=== PATIENT | female | born 1955 | race Caucasian/White ===

== ENCOUNTER 2016-09-07 11:13 | Inpatient (IN) | payer MEDICAID ==
[~2016-09-07] VITALS: Ht 160 cm; Wt 92.3 kg
[2016-09-07 12:25] LABS: Basophils # (auto) 0.1 uL; Basophils % (auto) 0.5 % (0.0-2.0); DEFINITIVE VIEW TRANSMISSION; Eosinophils # (auto) 0.1 uL; Eosinophils % (auto) 0.7 % (0.0-7.0); Hematocrit 43.8 % (36.0-46.0); Hemoglobin 14.7 g/dL (12.2-16.2); Lymphocytes # (auto) 2.3 uL; Lymphocytes % (auto) 17.8 % (10.0-50.0); Mean Corpuscular Hemoglobin 29.1 pg (28.0-32.0); Mean Corpuscular Hgb Conc. 33.5 g/dL (32.0-36.0); Mean Corpuscular Volume 86.9 fL (80.0-100.0); Mean Platelet Volume 8.4 fL (7.4-10.4); Monocytes # (auto) 2.1 uL; Monocytes % (auto) 16.5 % (0.0-12.0); Neutrophils # (auto) 8.3 uL; Neutrophils % (auto) 64.5 % (37.0-80.0); Platelet Count (auto) 393 10^3/uL (140-450); White Blood Cell 12.9 10^3/uL (4.4-10.8)
[2016-09-07 12:54] LABS: Urine Bilirubin Negative (Negative); Urine Blood Negative /uL (Negative); Urine Color Brown (Yellow); Urine Glucose Normal (Normal); Urine Ketone Negative (Negative); Urine RBC 1 /hpf (0 - 4); Urine Urobilinogen Normal (Negative); Urine pH 5.5 (5.0-8.0)
[2016-09-07 12:58] LABS: Albumin 3.1 g/dL (3.4-5.0); Alkaline Phosphatase 117 U/L (45-117); Anion Gap 12 (5-15); Aspartate Aminotransferase 18 U/L (15-37); BUN/Creatinine Ratio 15.4; Bilirubin, Total 0.6 mg/dL (0.2-1.0); Blood Urea Nitrogen 14 mg/dL (7-18); Carbon Dioxide 24 mmol/L (21-32); Chloride 106 mmol/L (98-107); GFR African American 81 mL/min; GFR Non-African American 67 mL/min; Glucose 127 mg/dL (74-106); Potassium 3.5 mmol/L (3.5-5.1); Sodium 142 mmol/L (136-145); Total Protein 8.4 g/dL (6.4-8.2)
[2016-09-07 13:00] LABS: Urine Nitrite POSITIVE (Negative)
[2016-09-07] MEDS ORDERED: SODIUM CHLORIDE 0.9% 1,000 ML IVB ONE (15:20)
[2016-09-07] MEDS ORDERED: MORPHINE SULF INJ 2 MG/ML SYRINGE 1ML IV ONE (15:30)
[2016-09-07] MEDS ORDERED: ONDANSETRON HCL 4 MG/2 ML VIAL IV ONE (15:30)
[2016-09-07] MEDS ORDERED: HYDROcodone-ACET 5/325MG TAB PO PRN (17:00)
[2016-09-07] MEDS ORDERED: cefTRIAXone 1GM/50ML D5W 50 ML IV ONE (17:15)
[2016-09-07 18:06] VITALS: BP 152/84
[2016-09-07 20:00] VITALS: BP 115/79
[2016-09-07] MEDS: ONDANSETRON HCL 4 MG/2 ML VIAL IV PRN (20:32)
[2016-09-07] MEDS: HYDROmorphone HCL 2 MG/ML VL IV PRN (20:32)
[2016-09-07 21:49] LABS: INR 1.11 (0.9-1.15); Partial Thromboplastin Time 26.2 sec (22.64-33.71); Prothrombin Time 11.4 sec (9.37-12.3)
[2016-09-07 22:00] VITALS: BP 115/79
[2016-09-08] VITALS (7 sets, daily range): BP systolic 131–147; BP diastolic 70–88
[2016-09-08] MEDS: HYDROmorphone HCL 2 MG/ML VL IV PRN ×3 (03:41→21:59)
[2016-09-08] MEDS: ONDANSETRON HCL 4 MG/2 ML VIAL IV PRN ×4 (03:41→16:49)
[2016-09-08 06:07] LABS: Basophils # (auto) 0 uL; Basophils % (auto) 0.3 % (0.0-2.0); DEFINITIVE VIEW TRANSMISSION; Eosinophils # (auto) 0.1 uL; Eosinophils % (auto) 0.6 % (0.0-7.0); Hematocrit 39.7 % (36.0-46.0); Hemoglobin 13.1 g/dL (12.2-16.2); Lymphocytes # (auto) 2.2 uL; Lymphocytes % (auto) 15.3 % (10.0-50.0); Mean Corpuscular Volume 87.7 fL (80.0-100.0); Mean Platelet Volume 8.9 fL (7.4-10.4); Monocytes # (auto) 1.9 uL; Monocytes % (auto) 13.2 % (0.0-12.0); Neutrophils # (auto) 10.2 uL; Neutrophils % (auto) 70.6 % (37.0-80.0); Platelet Count (auto) 388 10^3/uL (140-450); Red Cell Distribution Width 14.4 % (11.6-16.0); White Blood Cell 14.4 10^3/uL (4.4-10.8)
[2016-09-08 06:19] LABS: INR 1.09 (0.9-1.15); Partial Thromboplastin Time 26.5 sec (22.64-33.71); Prothrombin Time 11.2 sec (9.37-12.3)
[2016-09-08] MEDS ORDERED: GOLYTELY 4L KIT PO ONE (06:45)
[2016-09-08] MEDS ORDERED: PNEUMOCOCCAL VACC POLYS 25 MCG/0.5 ML VIAL IM ONE (09:00)
[2016-09-08] MEDS ORDERED: INFLUENZA QUAD 2016-2017 0.5 ML SYRG IM ONE (09:00)
[2016-09-08] MEDS: cefTRIAXone 1GM/50ML D5W 50 ML IV SCH (09:13)
[2016-09-08] MEDS ORDERED: LORazepam 2MG/ML-1ML VIAL IV ONE (12:15)
[2016-09-08] MEDS ORDERED: GADOPENTETATE DIMEGLUMINE (10MMOL/20 ML) VIAL IV ONE (13:23)
[2016-09-08] MEDS: METOPROLOL SUCCINATE XL 50 MG TAB PO SCH (16:21)
[2016-09-08 18:03] LABS: Urine RBC None Seen /hpf (0 - 4)
[2016-09-08 18:12] LABS: Urine Bilirubin Negative (Negative); Urine Blood Negative /uL (Negative); Urine Color Yellow (Yellow); Urine Glucose Normal (Normal); Urine Ketone Negative (Negative); Urine Mucus FEW (None Seen); Urine Nitrite Negative (Negative); Urine Urobilinogen Normal (Negative)
[2016-09-09] MEDS: HYDROmorphone HCL 2 MG/ML VL IV PRN ×4 (02:15→20:55)
[2016-09-09] MEDS: ONDANSETRON HCL 4 MG/2 ML VIAL IV PRN ×2 (02:15→20:55)
[2016-09-09 05:00] VITALS: BP 124/76
[2016-09-09 08:00] VITALS: BP 119/76
[2016-09-09] MEDS: cefTRIAXone 1GM/50ML D5W 50 ML IV SCH (08:19)
[2016-09-09] MEDS: METOPROLOL SUCCINATE XL 50 MG TAB PO SCH (11:22)
[2016-09-09 12:58] VITALS: BP 113/69
[2016-09-09 17:00] VITALS: BP 126/73
[2016-09-09 20:00] VITALS: BP 115/66
[2016-09-09 21:50] VITALS: BP 115/66
[2016-09-10] MEDS: HYDROmorphone HCL 2 MG/ML VL IV PRN ×2 (03:29→09:55)
[2016-09-10 05:33] VITALS: BP 102/50
[2016-09-10 08:03] VITALS: BP 102/50
[2016-09-10] MEDS: cefTRIAXone 1GM/50ML D5W 50 ML IV SCH (08:40)
[2016-09-10 09:00] VITALS: BP 114/70
[2016-09-10] MEDS: METOPROLOL SUCCINATE XL 50 MG TAB PO SCH (09:55)
[2016-09-10] MEDS ORDERED: ceFAZolin 1GM/50ML D5W 50 ML IV ONE ×2 (11:05→13:00)
[2016-09-10] MEDS ORDERED: fentaNYL CITRATE 100 MCG/2 ML VL ONE (11:38)
[2016-09-10] MEDS ORDERED: fentaNYL CITRATE 5 ML ONE (11:38)
[2016-09-10] MEDS ORDERED: MIDAZOLAM HCL 1MG/1ML-2 ML VIAL ONE (11:38)
[2016-09-10] MEDS ORDERED: HYDROmorphone HCL 2 MG/ML VL ONE (11:38)
[2016-09-10] MEDS ORDERED: ETOMIDATE (2MG/ML) 20ML VIAL IV ONE (11:39)
[2016-09-10] MEDS ORDERED: DEXAMETHASONE SOD PHOS 10MG/1ML VIAL INJ ONE (11:39)
[2016-09-10] MEDS ORDERED: ACETAMINOPHEN IV 100 ML IV ONE (13:00)
[2016-09-10] MEDS ORDERED: NITROGLYCERIN 0.4 MG SL TAB SL PRN (13:00)
[2016-09-10] MEDS ORDERED: MORPHINE SULF INJ 2 MG/ML SYRINGE 1ML IV PRN ×2 (13:00→16:15)
[2016-09-10] MEDS ORDERED: ROCURONIUM 10MG/ML 10ML VIAL IV ONE (13:35)
[2016-09-10] MEDS ORDERED: LIDOCAINE W/ EPINEPHRINE 1 % INJ 30ML ONE (15:21)
[2016-09-10] MEDS ORDERED: LIDOCAINE HCL (LOCAL ANESTH.) 0.5 % 50ML MDV IJ ONE (15:21)
[2016-09-10] MEDS ORDERED: BUPIVACAINE 0.25% INJ 50ML VIAL ONE (15:21)
[2016-09-10] MEDS ORDERED: NEOSTIGMINE 1 MG/ML INJ (10mg/10ML VIAL) ONE (15:46)
[2016-09-10] MEDS ORDERED: GLYCOPYRROLATE 0.2 MG/ML 1ML VIAL ONE (15:46)
[2016-09-10] MEDS ORDERED: MIDAZOLAM HCL 1MG/1ML-2 ML VIAL IV PRN (16:15)
[2016-09-10] MEDS ORDERED: KETOROLAC TROMETH 30 MG/ML 1ML VIAL IV ONE (16:15)
[2016-09-10] MEDS ORDERED: hydrALAZINE HCL 20 MG/ML VL IV PRN (16:15)
[2016-09-10] MEDS ORDERED: HYDROmorphone HCL 2 MG/ML VL IV PRN (16:15)
[2016-09-10] MEDS ORDERED: ePHEDrine SULFATE 50 MG/ML AMP IV PRN (16:15)
[2016-09-10] MEDS ORDERED: ONDANSETRON HCL 4 MG/2 ML VIAL IV ONE (16:15)
[2016-09-10] MEDS ORDERED: LABETALOL HCL 5 MG/ML 4ML SYRINGE IV PRN (16:15)
[2016-09-10] MEDS: SODIUM CHLORIDE 0.9% 1,000 ML IV SCH (18:01)
[2016-09-10 18:33] LABS: DEFINITIVE VIEW TRANSMISSION; Hematocrit 35.8 % (36.0-46.0); Hemoglobin 11.9 g/dL (12.2-16.2); Mean Corpuscular Hemoglobin 28.9 pg (28.0-32.0); Mean Corpuscular Hgb Conc. 33.2 g/dL (32.0-36.0); Mean Corpuscular Volume 87.2 fL (80.0-100.0); Mean Platelet Volume 8.8 fL (7.4-10.4); Platelet Count (auto) 416 10^3/uL (140-450); Red Cell Distribution Width 15.1 % (11.6-16.0); SUSPECT VIEW TRANSMISSION
[2016-09-10 19:15] LABS: White Blood Cell 33.6 10^3/uL (4.4-10.8)
[2016-09-10 19:16] LABS: Metamyelocytes % 0; Myelocytes % 0; Promyelocytes % 0; Reactive Lymphocytes 0
[2016-09-10 20:00] VITALS: BP 105/56
[2016-09-10 20:48] LABS: Anisocytosis Slight; Platelet Estimate Adequate
[2016-09-10 21:30] LABS: Hematocrit 36.4 % (36.0-46.0); Hemoglobin 12.2 g/dL (12.2-16.2)
[2016-09-10 21:53] VITALS: BP 105/56
[2016-09-11] MEDS: SODIUM CHLORIDE 0.9% 1,000 ML IV SCH ×2 (03:16→13:59)
[2016-09-11 05:15] VITALS: BP 118/79
[2016-09-11 05:44] LABS: DEFINITIVE VIEW TRANSMISSION; Hematocrit 32.3 % (36.0-46.0); Hemoglobin 10.8 g/dL (12.2-16.2); Mean Corpuscular Hemoglobin 29.1 pg (28.0-32.0); Mean Corpuscular Hgb Conc. 33.4 g/dL (32.0-36.0); Mean Corpuscular Volume 87.2 fL (80.0-100.0); Mean Platelet Volume 8.3 fL (7.4-10.4); Platelet Count (auto) 368 10^3/uL (140-450); Red Cell Distribution Width 14.4 % (11.6-16.0); SUSPECT VIEW TRANSMISSION; White Blood Cell 25.3 10^3/uL (4.4-10.8)
[2016-09-11 05:50] LABS: Metamyelocytes % 0; Myelocytes % 0; Promyelocytes % 0; Reactive Lymphocytes 0
[2016-09-11 06:05] LABS: BUN/Creatinine Ratio 23.3; Calcium 7.4 mg/dL (8.5-10.1); Potassium 3.8 mmol/L (3.5-5.1)
[2016-09-11 06:50] LABS: Hypersegmented Neutrophils Present
[2016-09-11 06:51] LABS: Anisocytosis Slight; Platelet Estimate Adequate
[2016-09-11 08:00] VITALS: BP 141/72
[2016-09-11] MEDS: cefTRIAXone 1GM/50ML D5W 50 ML IV SCH (08:35)
[2016-09-11] MEDS: HYDROmorphone HCL 2 MG/ML VL IV PRN ×3 (08:36→18:41)
[2016-09-11] MEDS: METOPROLOL SUCCINATE XL 50 MG TAB PO SCH (08:37)
[2016-09-11 09:00] VITALS: BP 141/72
[2016-09-11] MEDS: metroNIDAZOLE 500MG/100ML 100 ML IV SCH ×2 (13:59→23:01)
[2016-09-11] MEDS: MORPHINE SULF INJ 2 MG/ML SYRINGE 1ML IV PRN (15:24)
[2016-09-11 16:50] VITALS: BP 120/68
[2016-09-11] MEDS ORDERED: LIDOCAINE 1% HCL (LOCAL ANESTH.) INJ 20ML MDV ID ONE (18:15)
[2016-09-11] MEDS: ONDANSETRON HCL 4 MG/2 ML VIAL IV PRN (18:44)
[2016-09-11 20:00] VITALS: BP 111/76
[2016-09-11 22:00] VITALS: BP 127/67
[2016-09-11] MEDS: SODIUM CHLOR 0.9% PF (SALINE LOCK) 10ML VIAL IV SCH (23:02)
[2016-09-12] VITALS (11 sets, daily range): BP systolic 103–148; BP diastolic 62–87
[2016-09-12] MEDS: SODIUM CHLORIDE 0.9% 1,000 ML IV SCH ×3 (00:21→20:00)
[2016-09-12] MEDS: HYDROmorphone HCL 2 MG/ML VL IV PRN ×4 (00:21→13:58)
[2016-09-12] MEDS: ONDANSETRON HCL 4 MG/2 ML VIAL IV PRN ×4 (01:10→22:43)
[2016-09-12] MEDS: metroNIDAZOLE 500MG/100ML 100 ML IV SCH ×3 (05:15→23:34)
[2016-09-12 06:41] LABS: Albumin 1.7 g/dL (3.4-5.0); BUN/Creatinine Ratio 21.7; Bilirubin, Total 0.4 mg/dL (0.2-1.0); Calcium 7.7 mg/dL (8.5-10.1); Potassium 3.7 mmol/L (3.5-5.1)
[2016-09-12 07:47] LABS: DEFINITIVE VIEW TRANSMISSION; Hemoglobin 8.5 g/dL (12.2-16.2); Mean Corpuscular Hemoglobin 29.2 pg (28.0-32.0); Mean Corpuscular Hgb Conc. 33.9 g/dL (32.0-36.0); Mean Corpuscular Volume 86.1 fL (80.0-100.0); Mean Platelet Volume 8.4 fL (7.4-10.4); Platelet Count (auto) 284 10^3/uL (140-450); White Blood Cell 20.5 10^3/uL (4.4-10.8)
[2016-09-12 07:54] LABS: Metamyelocytes % 0; Myelocytes % 0; Promyelocytes % 0; Reactive Lymphocytes 0
[2016-09-12] MEDS: cefTRIAXone 1GM/50ML D5W 50 ML IV SCH (09:46)
[2016-09-12] MEDS: SODIUM CHLOR 0.9% PF (SALINE LOCK) 10ML VIAL IV SCH ×2 (09:47→22:44)
[2016-09-12] MEDS: METOPROLOL SUCCINATE XL 50 MG TAB PO SCH (09:48)
[2016-09-12 16:17] LABS: Basophils # (auto) 0.2 uL; Basophils % (auto) 0.8 % (0.0-2.0); DEFINITIVE VIEW TRANSMISSION; Eosinophils # (auto) 0 uL; Hematocrit 24.8 % (36.0-46.0); Hemoglobin 8.5 g/dL (12.2-16.2); Lymphocytes # (auto) 1.4 uL; Lymphocytes % (auto) 6.5 % (10.0-50.0); Mean Corpuscular Hemoglobin 29.5 pg (28.0-32.0); Mean Corpuscular Hgb Conc. 34.3 g/dL (32.0-36.0); Mean Platelet Volume 8.1 fL (7.4-10.4); Monocytes # (auto) 2.6 uL; Monocytes % (auto) 11.6 % (0.0-12.0); Neutrophils # (auto) 18.1 uL; Neutrophils % (auto) 81.1 % (37.0-80.0); Platelet Count (auto) 284 10^3/uL (140-450); White Blood Cell 22.3 10^3/uL (4.4-10.8)
[2016-09-12 16:31] LABS: INR 1.09 (0.9-1.15); Prothrombin Time 11.2 sec (9.37-12.3)
[2016-09-12 17:50] LABS: Platelet Estimate Adequate; RBC Morphology Normal
[2016-09-13] VITALS (10 sets, daily range): BP systolic 123–160; BP diastolic 68–89
[2016-09-13] MEDS: PANTOPRAZOLE SODIUM 40 MG/10 ML VIAL IV SCH ×2 (00:35→10:01)
[2016-09-13] MEDS: ONDANSETRON HCL 4 MG/2 ML VIAL IV PRN ×3 (03:18→20:42)
[2016-09-13] MEDS: SODIUM CHLORIDE 0.9% 1,000 ML IV SCH ×2 (06:00→18:47)
[2016-09-13] MEDS: metroNIDAZOLE 500MG/100ML 100 ML IV SCH (06:13)
[2016-09-13 06:43] LABS: DEFINITIVE VIEW TRANSMISSION; Hematocrit 37.2 % (36.0-46.0); Hemoglobin 12.4 g/dL (12.2-16.2); Mean Corpuscular Hemoglobin 28.8 pg (28.0-32.0); Mean Corpuscular Hgb Conc. 33.2 g/dL (32.0-36.0); Mean Corpuscular Volume 86.7 fL (80.0-100.0); Mean Platelet Volume 8.2 fL (7.4-10.4); Platelet Count (auto) 359 10^3/uL (140-450); SUSPECT VIEW TRANSMISSION
[2016-09-13 06:58] LABS: Metamyelocytes % 0; Myelocytes % 0; Promyelocytes % 0; Reactive Lymphocytes 0
[2016-09-13 07:16] LABS: Albumin 1.8 g/dL (3.4-5.0); Calcium 7.6 mg/dL (8.5-10.1); Magnesium 2.3 mg/dL (1.6-2.6); Potassium 3.2 mmol/L (3.5-5.1)
[2016-09-13 07:17] LABS: BUN/Creatinine Ratio 22.9
[2016-09-13 07:20] LABS: Bilirubin, Total 0.7 mg/dL (0.2-1.0); Total Protein 5.6 g/dL (6.4-8.2)
[2016-09-13 07:39] LABS: INR 1.17 (0.9-1.15)
[2016-09-13] MEDS: SODIUM CHLOR 0.9% PF (SALINE LOCK) 10ML VIAL IV SCH ×2 (10:01→22:02)
[2016-09-13] MEDS: cefTRIAXone 1GM/50ML D5W 50 ML IV SCH (10:02)
[2016-09-13] MEDS: METOPROLOL SUCCINATE XL 50 MG TAB PO SCH (10:25)
[2016-09-13] MEDS ORDERED: ACETAMINOPHEN 325 MG TAB PO PRN (13:00)
[2016-09-13] MEDS ORDERED: VANCOMYCIN PER PHARMACY 0 MG IV SCH (13:00)
[2016-09-13 15:09] LABS: Burr Cells FEW; Platelet Estimate Adequate
[2016-09-13] MEDS ORDERED: PIPERACILLIN-TAZOB 3.375GM 100 ML IV SCH (18:00)
[2016-09-13] MEDS: VANCOMYCIN 1GM/250ML D5W 250 ML IV SCH (18:47)
[2016-09-13] MEDS: MORPHINE SULF INJ 2 MG/ML SYRINGE 1ML IV PRN (20:42)
[2016-09-13] MEDS: PIPERACILLIN-TAZOB 3.375GM 100 ML IV SCH (21:00)
[2016-09-13] MEDS: HYDROmorphone HCL 2 MG/ML VL IV PRN (22:34)
[2016-09-14] MEDS: SODIUM CHLORIDE 0.9% 1,000 ML IV SCH ×2 (02:00→12:00)
[2016-09-14] MEDS: PIPERACILLIN-TAZOB 3.375GM 100 ML IV SCH ×2 (03:04→09:28)
[2016-09-14 05:47] VITALS: BP 132/73
[2016-09-14 06:17] LABS: DEFINITIVE VIEW TRANSMISSION; Hematocrit 33.8 % (36.0-46.0); Hemoglobin 11.4 g/dL (12.2-16.2); Mean Corpuscular Hgb Conc. 33.8 g/dL (32.0-36.0); Mean Corpuscular Volume 85.9 fL (80.0-100.0); Mean Platelet Volume 7.9 fL (7.4-10.4); Platelet Count (auto) 413 10^3/uL (140-450); SUSPECT VIEW TRANSMISSION; White Blood Cell 27.7 10^3/uL (4.4-10.8)
[2016-09-14] MEDS: VANCOMYCIN 1GM/250ML D5W 250 ML IV SCH ×2 (06:19→18:05)
[2016-09-14 06:40] LABS: Potassium 3.2 mmol/L (3.5-5.1)
[2016-09-14 06:44] LABS: INR 1.22 (0.9-1.15); Prothrombin Time 12.6 sec (9.37-12.3)
[2016-09-14 06:49] LABS: Albumin 1.5 g/dL (3.4-5.0); BUN/Creatinine Ratio 27.3; Calcium 7.3 mg/dL (8.5-10.1); Magnesium 2.3 mg/dL (1.6-2.6); Metamyelocytes % 0; Myelocytes % 0; Promyelocytes % 0; Reactive Lymphocytes 0
[2016-09-14 06:52] LABS: Bilirubin, Total 0.6 mg/dL (0.2-1.0); Total Protein 4.8 g/dL (6.4-8.2)
[2016-09-14 08:30] VITALS: BP 138/75
[2016-09-14] MEDS: PANTOPRAZOLE SODIUM 40 MG/10 ML VIAL IV SCH (09:29)
[2016-09-14] MEDS: METOPROLOL SUCCINATE XL 50 MG TAB PO SCH (09:32)
[2016-09-14] MEDS: SODIUM CHLOR 0.9% PF (SALINE LOCK) 10ML VIAL IV SCH ×2 (10:00→21:47)
[2016-09-14] MEDS ORDERED: POTASSIUM CHL 20 Meq TABLET PO ONE (11:45)
[2016-09-14] MEDS ORDERED: cefTRIAXone 1GM/50ML D5W 50 ML IV ONE (12:00)
[2016-09-14] MEDS: ONDANSETRON HCL 4 MG/2 ML VIAL IV PRN ×2 (12:25→23:20)
[2016-09-14 12:44] VITALS: BP 146/68
[2016-09-14 14:03] LABS: Burr Cells FEW; Platelet Estimate Adequate
[2016-09-14] MEDS: metroNIDAZOLE 500MG/100ML 100 ML IV SCH ×2 (15:59→21:47)
[2016-09-14 17:18] VITALS: BP 122/73
[2016-09-14] MEDS: PRO-STAT 64 30ML PO SCH (18:05)
[2016-09-14 22:00] VITALS: BP 119/73
[2016-09-14] MEDS: HYDROmorphone HCL 2 MG/ML VL IV PRN (23:21)
[2016-09-15 05:07] VITALS: BP 128/71
[2016-09-15] MEDS: VANCOMYCIN 1GM/250ML D5W 250 ML IV SCH ×2 (06:37→17:45)
[2016-09-15] MEDS: metroNIDAZOLE 500MG/100ML 100 ML IV SCH ×3 (06:37→22:06)
[2016-09-15 07:27] LABS: DEFINITIVE VIEW TRANSMISSION; Hematocrit 32.5 % (36.0-46.0); Hemoglobin 10.9 g/dL (12.2-16.2); Mean Corpuscular Hemoglobin 29.1 pg (28.0-32.0); Mean Corpuscular Hgb Conc. 33.5 g/dL (32.0-36.0); Mean Corpuscular Volume 86.7 fL (80.0-100.0); Mean Platelet Volume 7.7 fL (7.4-10.4); Platelet Count (auto) 363 10^3/uL (140-450); Red Cell Distribution Width 16.1 % (11.6-16.0); SUSPECT VIEW TRANSMISSION; White Blood Cell 22.6 10^3/uL (4.4-10.8)
[2016-09-15 07:36] LABS: Metamyelocytes % 0; Myelocytes % 0; Promyelocytes % 0; Reactive Lymphocytes 0
[2016-09-15 07:46] LABS: Calcium 7.1 mg/dL (8.5-10.1); Potassium 3.4 mmol/L (3.5-5.1)
[2016-09-15] MEDS: PRO-STAT 64 30ML PO SCH ×2 (08:00→17:45)
[2016-09-15] MEDS: SODIUM CHLORIDE 0.9% 1,000 ML IV SCH (08:00)
[2016-09-15] MEDS: PANTOPRAZOLE SODIUM 40 MG/10 ML VIAL IV SCH (08:56)
[2016-09-15] MEDS: ONDANSETRON HCL 4 MG/2 ML VIAL IV PRN ×2 (08:56→20:58)
[2016-09-15] MEDS: cefTRIAXone 1GM/50ML D5W 50 ML IV SCH (08:56)
[2016-09-15 09:00] VITALS: BP 135/77
[2016-09-15 09:02] LABS: Platelet Estimate Adequate; RBC Morphology Normal
[2016-09-15] MEDS: METOPROLOL SUCCINATE XL 50 MG TAB PO SCH (09:03)
[2016-09-15] MEDS ORDERED: MIDAZOLAM HCL 1MG/1ML-2 ML VIAL ONE (11:04)
[2016-09-15] MEDS ORDERED: fentaNYL CITRATE 100 MCG/2 ML VL ONE (11:04)
[2016-09-15] MEDS: SODIUM CHLOR 0.9% PF (SALINE LOCK) 10ML VIAL IV SCH ×2 (11:08→22:06)
[2016-09-15] MEDS: HYDROmorphone HCL 2 MG/ML VL IV PRN ×2 (11:09→20:58)
[2016-09-15] MEDS ORDERED: LIDOCAINE 2%HCL (LOCAL ANESTH.) INJ 20ML MDV ONE (11:18)
[2016-09-15] MEDS ORDERED: POTASSIUM CHL 20 Meq TABLET PO ONE (11:30)
[2016-09-15] MEDS ORDERED: LIDOCAINE 1% HCL (LOCAL ANESTH.) INJ 20ML MDV ONE (12:01)
[2016-09-15 16:41] VITALS: BP 137/74
[2016-09-15 22:02] VITALS: BP 124/74
[2016-09-16] MEDS: HYDROmorphone HCL 2 MG/ML VL IV PRN ×3 (04:01→17:22)
[2016-09-16] MEDS: ONDANSETRON HCL 4 MG/2 ML VIAL IV PRN ×3 (04:01→17:23)
[2016-09-16] MEDS: SODIUM CHLORIDE 0.9% 1,000 ML IV SCH ×3 (04:43→13:23)
[2016-09-16 04:55] VITALS: BP 149/84
[2016-09-16 05:54] LABS: DEFINITIVE VIEW TRANSMISSION; Hematocrit 31.2 % (36.0-46.0); Hemoglobin 10.4 g/dL (12.2-16.2); Mean Corpuscular Hgb Conc. 33.2 g/dL (32.0-36.0); Mean Corpuscular Volume 87.2 fL (80.0-100.0); Mean Platelet Volume 7.5 fL (7.4-10.4); Platelet Count (auto) 380 10^3/uL (140-450); Red Cell Distribution Width 15.8 % (11.6-16.0); SUSPECT VIEW TRANSMISSION
[2016-09-16] MEDS: VANCOMYCIN 1GM/250ML D5W 250 ML IV SCH (05:56)
[2016-09-16] MEDS: metroNIDAZOLE 500MG/100ML 100 ML IV SCH (05:57)
[2016-09-16 06:02] LABS: BUN/Creatinine Ratio 18.2; Calcium 7.4 mg/dL (8.5-10.1); Potassium 3.4 mmol/L (3.5-5.1)
[2016-09-16 06:29] LABS: Metamyelocytes % 0; Myelocytes % 0; Promyelocytes % 0; Reactive Lymphocytes 0
[2016-09-16 06:58] LABS: Hypersegmented Neutrophils Present; Platelet Estimate Adequate; RBC Morphology Normal
[2016-09-16 08:00] VITALS: BP 129/68
[2016-09-16] MEDS: PRO-STAT 64 30ML PO SCH ×2 (08:00→18:29)
[2016-09-16] MEDS: PANTOPRAZOLE SODIUM 40 MG/10 ML VIAL IV SCH (08:34)
[2016-09-16] MEDS: METOPROLOL SUCCINATE XL 50 MG TAB PO SCH (08:34)
[2016-09-16] MEDS: cefTRIAXone 1GM/50ML D5W 50 ML IV SCH (08:34)
[2016-09-16] MEDS: SODIUM CHLOR 0.9% PF (SALINE LOCK) 10ML VIAL IV SCH ×2 (08:34→21:49)
[2016-09-16 09:00] VITALS: BP 129/68
[2016-09-16] MEDS ORDERED: LEVOFLOXACIN 500 MG TAB PO ONE (10:45)
[2016-09-16] MEDS ORDERED: POTASSIUM CHL 20 Meq TABLET PO ONE (10:45)
[2016-09-16 13:00] VITALS: BP 113/70
[2016-09-16] MEDS: HYDROcodone-ACET 5/325MG TAB PO PRN (13:23)
[2016-09-16] MEDS: metroNIDAZOLE 500 MG TAB PO SCH ×2 (13:23→21:49)
[2016-09-16 17:00] VITALS: BP 122/76
[2016-09-16 22:00] VITALS: BP 120/66
[2016-09-17] MEDS: SODIUM CHLORIDE 0.9% 1,000 ML IV SCH ×2 (03:29→16:41)
[2016-09-17] MEDS: HYDROmorphone HCL 2 MG/ML VL IV PRN ×2 (04:24→22:21)
[2016-09-17] MEDS: ONDANSETRON HCL 4 MG/2 ML VIAL IV PRN ×3 (04:25→22:21)
[2016-09-17 05:00] VITALS: BP 124/76
[2016-09-17] MEDS: metroNIDAZOLE 500 MG TAB PO SCH ×3 (05:31→22:13)
[2016-09-17 07:05] LABS: Basophils # (auto) 0 uL; DEFINITIVE VIEW TRANSMISSION; Eosinophils # (auto) 0.2 uL; Eosinophils % (auto) 1.3 % (0.0-7.0); Hematocrit 31.3 % (36.0-46.0); Hemoglobin 10.4 g/dL (12.2-16.2); Lymphocytes # (auto) 1.2 uL; Lymphocytes % (auto) 6.7 % (10.0-50.0); Mean Corpuscular Hgb Conc. 33.3 g/dL (32.0-36.0); Mean Corpuscular Volume 87.1 fL (80.0-100.0); Monocytes # (auto) 1.8 uL; Monocytes % (auto) 9.7 % (0.0-12.0); Neutrophils % (auto) 82.3 % (37.0-80.0); Platelet Count (auto) 343 10^3/uL (140-450); Red Cell Distribution Width 15.5 % (11.6-16.0); White Blood Cell 18.2 10^3/uL (4.4-10.8)
[2016-09-17 07:18] LABS: Calcium 6.2 mg/dL (8.5-10.1); Potassium 3.2 mmol/L (3.5-5.1)
[2016-09-17 07:20] LABS: BUN/Creatinine Ratio 12.5
[2016-09-17 09:00] VITALS: BP 156/84
[2016-09-17] MEDS: METOPROLOL SUCCINATE XL 50 MG TAB PO SCH (10:01)
[2016-09-17] MEDS: PANTOPRAZOLE 40 MG TAB PO SCH (10:01)
[2016-09-17] MEDS: PRO-STAT 64 30ML PO SCH ×2 (10:02→17:29)
[2016-09-17] MEDS: LEVOFLOXACIN 500 MG TAB PO SCH (10:02)
[2016-09-17] MEDS: SODIUM CHLOR 0.9% PF (SALINE LOCK) 10ML VIAL IV SCH ×2 (10:02→22:13)
[2016-09-17 13:00] VITALS: BP 127/69
[2016-09-17] MEDS: HYDROcodone-ACET 5/325MG TAB PO PRN ×3 (13:21→20:32)
[2016-09-17] MEDS ORDERED: POTASSIUM CHL 20 Meq TABLET PO ONE (13:30)
[2016-09-17 17:00] VITALS: BP 141/64
[2016-09-17 20:00] VITALS: BP 128/66
[2016-09-17 22:00] VITALS: BP 128/66
[2016-09-18 05:05] VITALS: BP 142/74
[2016-09-18] MEDS: HYDROmorphone HCL 2 MG/ML VL IV PRN ×2 (05:39→14:14)
[2016-09-18] MEDS: metroNIDAZOLE 500 MG TAB PO SCH ×2 (05:39→14:08)
[2016-09-18] MEDS: ONDANSETRON HCL 4 MG/2 ML VIAL IV PRN ×2 (05:40→14:14)
[2016-09-18] MEDS: SODIUM CHLORIDE 0.9% 1,000 ML IV SCH (06:06)
[2016-09-18 07:26] LABS: Basophils # (auto) 0 uL; DEFINITIVE VIEW TRANSMISSION; Eosinophils # (auto) 0.3 uL; Eosinophils % (auto) 1.7 % (0.0-7.0); Hematocrit 31.4 % (36.0-46.0); Hemoglobin 10.3 g/dL (12.2-16.2); Lymphocytes # (auto) 1.7 uL; Lymphocytes % (auto) 10.3 % (10.0-50.0); Mean Corpuscular Hemoglobin 28.8 pg (28.0-32.0); Mean Corpuscular Hgb Conc. 32.8 g/dL (32.0-36.0); Mean Corpuscular Volume 87.8 fL (80.0-100.0); Mean Platelet Volume 7.9 fL (7.4-10.4); Monocytes # (auto) 2.1 uL; Monocytes % (auto) 12.2 % (0.0-12.0); Neutrophils # (auto) 12.7 uL; Neutrophils % (auto) 75.8 % (37.0-80.0); Platelet Count (auto) 391 10^3/uL (140-450); Red Cell Distribution Width 15.8 % (11.6-16.0); White Blood Cell 16.8 10^3/uL (4.4-10.8)
[2016-09-18 07:33] LABS: BUN/Creatinine Ratio 9.6; Calcium 7.2 mg/dL (8.5-10.1); Potassium 3.6 mmol/L (3.5-5.1)
[2016-09-18 08:00] VITALS: BP 127/77
[2016-09-18] MEDS: PRO-STAT 64 30ML PO SCH ×2 (08:45→18:31)
[2016-09-18 09:00] VITALS: BP 127/77
[2016-09-18] MEDS: LEVOFLOXACIN 500 MG TAB PO SCH (09:43)
[2016-09-18] MEDS: PANTOPRAZOLE 40 MG TAB PO SCH (09:43)
[2016-09-18] MEDS: METOPROLOL SUCCINATE XL 50 MG TAB PO SCH (09:43)
[2016-09-18] MEDS: SODIUM CHLOR 0.9% PF (SALINE LOCK) 10ML VIAL IV SCH (09:44)
[2016-09-18] MEDS: HYDROcodone-ACET 5/325MG TAB PO PRN (12:11)
[2016-09-18 13:00] VITALS: BP 133/75
[2016-09-18 13:29] VITALS: BP 127/77
[2016-09-18 16:52] VITALS: BP 130/74
== END 2016-09-18 19:52 | disposition home or self-care (01) | DRG 710 ==
LOC: ER 11:23 → OVERFLOW 11:24 → EAST 18:05 → WEST WING 19:05 → TELE-WESTW 09-08 19:25 → WEST WING 09-17 22:12
PROVIDERS: ADMIT Internal Medicine; ATTEND Internal Medicine
PROC: 07BC0ZZ Excision of Pelvis Lymphatic, Open Approach (ICD-10-PCS; 2016-09-10)
PROC: 0DTS0ZZ (ICD-10-PCS; 2016-09-10)
PROC: 30233N1 Transfusion of Nonautologous Red Blood Cells into Peripheral Vein, Percutaneous Approach (ICD-10-PCS; 2016-09-10)
PROC: 0UT90ZZ Resection of Uterus, Open Approach (ICD-10-PCS; 2016-09-10)
PROC: 0UTC0ZZ Resection of Cervix, Open Approach (ICD-10-PCS; 2016-09-10)
PROC: 0UT20ZZ Resection of Bilateral Ovaries, Open Approach (ICD-10-PCS; 2016-09-10)
PROC: 0UT70ZZ Resection of Bilateral Fallopian Tubes, Open Approach (ICD-10-PCS; 2016-09-10)
PROC: 02HV33Z Insertion of Infusion Device into Superior Vena Cava, Percutaneous Approach (ICD-10-PCS; 2016-09-11)
PROC: 0PB43ZX Excision of Thoracic Vertebra, Percutaneous Approach, Diagnostic (ICD-10-PCS; principal; 2016-09-15)
DX: A41.9 Sepsis, unspecified organism (principal); E43 Unspecified severe protein-calorie malnutrition; C79.51 Secondary malignant neoplasm of bone; G95.29 Other cord compression; K57.92 Diverticulitis of intestine, part unspecified, without perforation or abscess without bleeding; N13.30 Unspecified hydronephrosis; C56.9 Malignant neoplasm of unspecified ovary; M48.54XA Collapsed vertebra, not elsewhere classified, thoracic region, initial encounter for fracture; E66.01 Morbid (severe) obesity due to excess calories; N83.209 Unspecified ovarian cyst, unspecified side; N39.0 Urinary tract infection, site not specified; K66.0 Peritoneal adhesions (postprocedural) (postinfection); M54.9 Dorsalgia, unspecified; D64.9 Anemia, unspecified; I10 Essential (primary) hypertension; B19.20 Unspecified viral hepatitis C without hepatic coma; I35.1 Nonrheumatic aortic (valve) insufficiency; K57.30 Diverticulosis of large intestine without perforation or abscess without bleeding; Z82.49 Family history of ischemic heart disease and other diseases of the circulatory system; Z90.49 Acquired absence of other specified parts of digestive tract; Z90.710 Acquired absence of both cervix and uterus; Z83.3 Family history of diabetes mellitus; Z98.49 Cataract extraction status, unspecified eye; Z91.041 Radiographic dye allergy status; Z91.013 Allergy to seafood; Z68.36 Body mass index [BMI] 36.0-36.9, adult; Z23 Encounter for immunization; N13.6 Pyonephrosis
CPT/HCPCS: 10022; 36415; 36569; 71010; 71020; 72147; 74176; 76856; 77012; 78306; 78452; 80048; 80053; 80202; 81001; 82378; 82784; 83735; 84484; 84702; 85007; 85014; 85018; 85025; 85027; 85610; 85730; 86304; 86334; 86335; 86850; 86900; 86901; 86920; 87086; 93005; 93017; 93306; 96361; 96374; 96375; 97001; 97116; 97530; C9113; J0690; J0696; J1100; J2001; J2250; J2405; J2543; J3490

== ENCOUNTER 2018-03-08 15:43 | Inpatient (IN) | payer MEDICAID ==
[~2018-03-08] VITALS: Ht 160 cm; Wt 69.2 kg
[2018-03-08] MEDS ORDERED: SODIUM CHLORIDE 0.9% 1,000 ML IV ONE (17:21)
[2018-03-08 17:22] LABS: Alanine Aminotransferase 23 U/L (13-56); Albumin 2.7 g/dL (3.4-5.0); Alkaline Phosphatase 54 U/L (45-117); Anion Gap 6 (5-15); Aspartate Aminotransferase 13 U/L (15-37); Bilirubin, Total 0.2 mg/dL (0.2-1.0); Blood Urea Nitrogen 37 mg/dL (7-18); Calcium 7.7 mg/dL (8.5-10.1); Carbon Dioxide 24 mmol/L (21-32); Chloride 113 mmol/L (98-107); GFR African American 86 mL/min; GFR Non-African American 71 mL/min; Glucose 119 mg/dL (74-106); Magnesium 2.4 mg/dL (1.6-2.6); Potassium 4.1 mmol/L (3.5-5.1); Sodium 143 mmol/L (136-145); Total Protein 5.8 g/dL (6.4-8.2)
[2018-03-08] MEDS ORDERED: PANTOPRAZOLE 40 MG/10 ML VIAL IV ONE (17:30)
[2018-03-08] MEDS ORDERED: ACETAMINOPHEN 325 MG TAB PO PRN (18:45)
[2018-03-08] MEDS ORDERED: DOCUSATE SOD 100 MG CAP PO PRN (18:45)
[2018-03-08] MEDS ORDERED: MORPHINE SULF INJ 2 MG/ML SYRINGE 1ML IV PRN (18:45)
[2018-03-08] MEDS ORDERED: NITROGLYCERIN 0.4 MG SL TAB SL PRN (18:45)
[2018-03-08] MEDS ORDERED: ONDANSETRON HCL 4 MG/2 ML VIAL IV PRN (18:45)
[2018-03-08 19:10] LABS: Basophils # (auto) 0 uL; Basophils % (auto) 0.3 % (0.0-2.0); Eosinophils # (auto) 0 uL; Eosinophils % (auto) 0.1 % (0.0-7.0); Hematocrit 31.9 % (36.0-46.0); Hemoglobin 10.5 g/dL (12.2-16.2); Lymphocytes # (auto) 1.4 uL; Lymphocytes % (auto) 10.3 % (10.0-50.0); Mean Corpuscular Hemoglobin 31.7 pg (28.0-32.0); Mean Corpuscular Hgb Conc. 32.8 g/dL (32.0-36.0); Mean Corpuscular Volume 96.6 fL (80.0-100.0); Monocytes # (auto) 1.1 uL; Neutrophils # (auto) 11.4 uL; Neutrophils % (auto) 81.3 % (37.0-80.0); Nucleated Red Blood Cells % 0.1 %; Platelet Count (auto) 189 10^3/uL (140-450); Red Cell Distribution Width 15.3 % (11.8-14.3)
[2018-03-08] MEDS: SODIUM CHLORIDE 0.9% 1,000 ML IV SCH (19:42)
[2018-03-08 20:04] LABS: INR 0.98 (0.9-1.15); Prothrombin Time 10.5 sec (9.27-12.13)
[2018-03-08 21:38] VITALS: BP 107/71
[2018-03-08 21:40] VITALS: BP 107/71
[2018-03-08] MEDS: GABAPENTIN 100 MG CAP PO SCH (22:04)
[2018-03-08] MEDS: FAMOTIDINE 20 MG TAB PO SCH (22:04)
[2018-03-08] MEDS: HYDROcodone-ACET 5/325MG TAB PO PRN (22:10)
[2018-03-08 22:51] LABS: Hematocrit 29.5 % (36.0-46.0); Hemoglobin 9.8 g/dL (12.2-16.2)
[2018-03-08] MEDS ORDERED: METO-169 PO (23:20)
[2018-03-08] MEDS ORDERED: ALEN70TA55 PO (23:20)
[2018-03-08] MEDS ORDERED: GABA300C10 PO (23:20)
[2018-03-08] MEDS ORDERED: ACETTAB85 PO (23:20)
[2018-03-09 00:25] LABS: Urine Bacteria MANY /hpf (None Seen); Urine Blood 1+ /uL (Negative); Urine Mucus FEW (None Seen); Urine Specific Gravity 1.018 (1.001-1.035); Urine WBC 22 /hpf (0 - 5)
[2018-03-09 05:00] VITALS: BP 105/74
[2018-03-09] MEDS: HYDROcodone-ACET 5/325MG TAB PO PRN ×3 (06:06→14:38)
[2018-03-09] MEDS: GABAPENTIN 100 MG CAP PO SCH (06:06)
[2018-03-09 06:26] LABS: Basophils # (auto) 0 uL; Basophils % (auto) 0.4 % (0.0-2.0); Eosinophils # (auto) 0 uL; Eosinophils % (auto) 0.1 % (0.0-7.0); Hematocrit 27.7 % (36.0-46.0); Hemoglobin 9.2 g/dL (12.2-16.2); Lymphocytes # (auto) 3.2 uL; Lymphocytes % (auto) 27.1 % (10.0-50.0); Mean Corpuscular Hemoglobin 31.9 pg (28.0-32.0); Mean Corpuscular Hgb Conc. 33.3 g/dL (32.0-36.0); Mean Corpuscular Volume 95.7 fL (80.0-100.0); Monocytes # (auto) 1.9 uL; Monocytes % (auto) 16.3 % (0.0-12.0); Neutrophils # (auto) 6.5 uL; Neutrophils % (auto) 56.1 % (37.0-80.0); Platelet Count (auto) 165 10^3/uL (140-450); Red Cell Distribution Width 15.1 % (11.8-14.3); White Blood Cell 11.6 10^3/uL (4.4-10.8)
[2018-03-09 06:41] LABS: Albumin 2.8 g/dL (3.4-5.0); BUN/Creatinine Ratio 65.5; Bilirubin, Total 0.3 mg/dL (0.2-1.0); Calcium 7.5 mg/dL (8.5-10.1); Potassium 3.9 mmol/L (3.5-5.1); Total Protein 5.8 g/dL (6.4-8.2)
[2018-03-09 08:46] VITALS: BP 116/69
[2018-03-09] MEDS: METOPROLOL SUCCINATE XL 50 MG TAB PO SCH (10:17)
[2018-03-09] MEDS: FAMOTIDINE 20 MG TAB PO SCH (10:17)
[2018-03-09] MEDS: MULTIPLE VITAMIN TAB PO SCH (10:18)
[2018-03-09] MEDS: Ensure Enlive Strawberry 8oz Bottle PO SCH ×3 (10:18→17:55)
[2018-03-09] MEDS: SODIUM CHLORIDE 0.9% 1,000 ML IV SCH (10:22)
[2018-03-09 13:00] VITALS: BP 122/69
[2018-03-09] MEDS ORDERED: cefTRIAXone 1GM/10ml IVPUSH 10 ML IV ONE (14:30)
[2018-03-09] MEDS: GABAPENTIN 300 MG CAP PO SCH ×2 (14:37→21:57)
[2018-03-09 16:37] VITALS: BP 83/50
[2018-03-09 18:10] LABS: % Iron Saturation 34.6 % (15-50)
[2018-03-09 18:20] LABS: Folate (Folic Acid) > 24.00 ng/mL (5.38-24)
[2018-03-09] MEDS: TEMAZEPAM 15 MG CAP PO PRN (21:57)
[2018-03-09 22:00] VITALS: BP 102/63
[2018-03-09] MEDS ORDERED: PANTOPRAZOLE 40 MG/10 ML VIAL IV SCH (22:00)
[2018-03-10] MEDS: SODIUM CHLORIDE 0.9% 1,000 ML IV SCH ×2 (00:17→20:38)
[2018-03-10 04:30] VITALS: BP_SYST 111; BP_SYST 89; BP_SYST 98; BP_DIAS 46; BP_DIAS 62; BP_DIAS 70
[2018-03-10] MEDS: GABAPENTIN 300 MG CAP PO SCH ×3 (05:36→22:09)
[2018-03-10] MEDS: HYDROcodone-ACET 5/325MG TAB PO PRN ×3 (05:37→22:10)
[2018-03-10 05:57] LABS: Basophils # (auto) 0 uL; Basophils % (auto) 0.6 % (0.0-2.0); Eosinophils # (auto) 0.1 uL; Eosinophils % (auto) 1.3 % (0.0-7.0); Hemoglobin 7.8 g/dL (12.2-16.2); Lymphocytes # (auto) 2.2 uL; Mean Corpuscular Hgb Conc. 33.9 g/dL (32.0-36.0); Nucleated Red Blood Cells % 0.1 %
[2018-03-10 06:05] LABS: Hematocrit 23.1 % (36.0-46.0); Lymphocytes % (auto) 26.8 % (10.0-50.0); Mean Corpuscular Hemoglobin 32.8 pg (28.0-32.0); Mean Corpuscular Volume 96.7 fL (80.0-100.0); Monocytes # (auto) 1.1 uL; Monocytes % (auto) 13.3 % (0.0-12.0); Neutrophils # (auto) 4.8 uL; Platelet Count (auto) 136 10^3/uL (140-450); Red Blood Cells 2.39 10^6/uL (4.0-5.20); Red Cell Distribution Width 15.4 % (11.8-14.3); White Blood Cell 8.3 10^3/uL (4.4-10.8)
[2018-03-10 06:06] LABS: INR 0.95 (0.9-1.15); Partial Thromboplastin Time 23.8 sec (23.78-33.04); Prothrombin Time 10.2 sec (9.27-12.13)
[2018-03-10 06:23] LABS: Albumin 2.7 g/dL (3.4-5.0); BUN/Creatinine Ratio 21.3; Bilirubin, Total 0.3 mg/dL (0.2-1.0); Calcium 7.8 mg/dL (8.5-10.1); Magnesium 2.2 mg/dL (1.6-2.6); Potassium 3.7 mmol/L (3.5-5.1); Total Protein 5.6 g/dL (6.4-8.2)
[2018-03-10] MEDS: Ensure Enlive Strawberry 8oz Bottle PO SCH ×4 (08:00→18:00)
[2018-03-10] MEDS ORDERED: LIDOCAINE VISCOUS 2% 15ML UD ONE (08:15)
[2018-03-10] MEDS ORDERED: SODIUM CHLORIDE LOCK 10 ML ONE (08:15)
[2018-03-10] MEDS ORDERED: fentaNYL CITRATE 100 MCG/2 ML VL ONE (08:15)
[2018-03-10] MEDS ORDERED: MIDAZOLAM HCL 5 MG/ML-1ML VIAL ONE (08:16)
[2018-03-10 09:00] VITALS: BP 86/68
[2018-03-10] MEDS: PANTOPRAZOLE 40 MG TAB PO SCH ×2 (11:13→22:09)
[2018-03-10] MEDS: MULTIPLE VITAMIN TAB PO SCH (11:13)
[2018-03-10] MEDS: cefTRIAXone 1GM/10ml IVPUSH 10 ML IV SCH (11:13)
[2018-03-10] MEDS: METOPROLOL SUCCINATE XL 50 MG TAB PO SCH (11:14)
[2018-03-10 13:00] VITALS: BP 102/57
[2018-03-10 14:09] LABS: Hemoglobin 7.7 g/dL (12.2-16.2)
[2018-03-10 14:10] LABS: Hematocrit 23.1 % (36.0-46.0)
[2018-03-10 17:00] VITALS: BP 113/63
[2018-03-10 20:00] VITALS: BP 100/60
[2018-03-10 22:00] VITALS: BP 103/61
[2018-03-10] MEDS: TEMAZEPAM 15 MG CAP PO PRN (22:09)
[2018-03-11 05:00] VITALS: BP 95/57
[2018-03-11 05:31] LABS: Eosinophils # (auto) 0.2 uL; Hemoglobin 7.8 g/dL (12.2-16.2); Lymphocytes # (auto) 2.4 uL; Monocytes # (auto) 1.1 uL; Monocytes % (auto) 15.4 % (0.0-12.0); Neutrophils # (auto) 3.5 uL; Nucleated Red Blood Cells % 0.1 %; Red Blood Cells 2.37 10^6/uL (4.0-5.20); White Blood Cell 7.2 10^3/uL (4.4-10.8)
[2018-03-11 05:33] LABS: Basophils # (auto) 0 uL; Basophils % (auto) 0.6 % (0.0-2.0); Eosinophils % (auto) 2.3 % (0.0-7.0); Lymphocytes % (auto) 32.8 % (10.0-50.0); Mean Corpuscular Hgb Conc. 33.9 g/dL (32.0-36.0); Mean Corpuscular Volume 97.2 fL (80.0-100.0); Neutrophils % (auto) 48.9 % (37.0-80.0); Platelet Count (auto) 139 10^3/uL (140-450); Red Cell Distribution Width 15.3 % (11.8-14.3)
[2018-03-11 05:50] LABS: BUN/Creatinine Ratio 24.2; Calcium 7.9 mg/dL (8.5-10.1); Potassium 3.9 mmol/L (3.5-5.1)
[2018-03-11] MEDS: HYDROcodone-ACET 5/325MG TAB PO PRN ×3 (05:51→23:15)
[2018-03-11] MEDS: GABAPENTIN 300 MG CAP PO SCH ×3 (05:51→21:28)
[2018-03-11 08:00] VITALS: BP 98/64
[2018-03-11] MEDS: Ensure Enlive Strawberry 8oz Bottle PO SCH ×3 (08:00→18:00)
[2018-03-11 08:06] LABS: % Iron Saturation 16.7 % (15-50)
[2018-03-11] MEDS: CYANOCOBALAMIN 500 MCG TAB PO SCH (09:12)
[2018-03-11] MEDS: cefTRIAXone 1GM/10ml IVPUSH 10 ML IV SCH (09:12)
[2018-03-11] MEDS: PANTOPRAZOLE 40 MG TAB PO SCH ×2 (09:13→21:29)
[2018-03-11] MEDS: MULTIPLE VITAMIN TAB PO SCH (09:13)
[2018-03-11] MEDS: METOPROLOL SUCCINATE XL 50 MG TAB PO SCH (09:47)
[2018-03-11] MEDS ORDERED: ERTAPENEM SOD INJ 1 GM in SODIUM CHL 0.9% 50 ML IV ONE (12:00)
[2018-03-11 13:01] VITALS: BP 102/63
[2018-03-11] MEDS ORDERED: SODIUM FERR GLUC 62.5MG/5ML 125 MG in SODIUM CHL 0.9% 100 ML IV ONE (13:30)
[2018-03-11] MEDS: SODIUM CHLORIDE 0.9% 1,000 ML IV SCH (15:55)
[2018-03-11 17:00] VITALS: BP 102/59
[2018-03-11 22:00] VITALS: BP 110/62
[2018-03-11] MEDS: TEMAZEPAM 15 MG CAP PO PRN (23:15)
[2018-03-12 05:00] VITALS: BP 100/66
[2018-03-12] MEDS: GABAPENTIN 300 MG CAP PO SCH ×3 (05:48→23:04)
[2018-03-12] MEDS: HYDROcodone-ACET 5/325MG TAB PO PRN ×2 (05:49→23:02)
[2018-03-12 05:58] LABS: Basophils # (auto) 0 uL; Basophils % (auto) 0.3 % (0.0-2.0); Eosinophils # (auto) 0.2 uL; Lymphocytes # (auto) 1.7 uL; Platelet Count (auto) 157 10^3/uL (140-450)
[2018-03-12] MEDS: SODIUM CHLORIDE 0.9% 1,000 ML IV SCH ×2 (05:58→22:38)
[2018-03-12 06:02] LABS: Eosinophils % (auto) 2.2 % (0.0-7.0); Hematocrit 23.5 % (36.0-46.0); Hemoglobin 7.9 g/dL (12.2-16.2); Lymphocytes % (auto) 21.5 % (10.0-50.0); Mean Corpuscular Hemoglobin 32.5 pg (28.0-32.0); Mean Corpuscular Hgb Conc. 33.8 g/dL (32.0-36.0); Mean Corpuscular Volume 96.1 fL (80.0-100.0); Monocytes # (auto) 1.1 uL; Monocytes % (auto) 13.4 % (0.0-12.0); Neutrophils # (auto) 5.1 uL; Neutrophils % (auto) 62.6 % (37.0-80.0); Red Blood Cells 2.44 10^6/uL (4.0-5.20); Red Cell Distribution Width 15.4 % (11.8-14.3); White Blood Cell 8.1 10^3/uL (4.4-10.8)
[2018-03-12] MEDS: Ensure Enlive Strawberry 8oz Bottle PO SCH ×3 (08:00→18:00)
[2018-03-12 08:22] VITALS: BP 108/59
[2018-03-12] MEDS: METOPROLOL SUCCINATE XL 50 MG TAB PO SCH (10:40)
[2018-03-12] MEDS: PANTOPRAZOLE 40 MG TAB PO SCH ×2 (10:40→23:03)
[2018-03-12] MEDS: CYANOCOBALAMIN 500 MCG TAB PO SCH (10:40)
[2018-03-12] MEDS: MULTIPLE VITAMIN TAB PO SCH (10:40)
[2018-03-12] MEDS: ERTAPENEM SOD INJ 1 GM in SODIUM CHL 0.9% 50 ML IV SCH (10:59)
[2018-03-12 11:55] VITALS: BP 101/61
[2018-03-12] MEDS: SODIUM FERR GLUC 62.5MG/5ML 125 MG in SODIUM CHL 0.9% 100 ML IV SCH (13:30)
[2018-03-12 16:05] VITALS: BP 98/52
[2018-03-12 20:00] VITALS: BP 108/59
[2018-03-12 21:38] VITALS: BP 98/58
[2018-03-12] MEDS: TEMAZEPAM 15 MG CAP PO PRN (23:05)
[2018-03-13 05:00] VITALS: BP 140/70
[2018-03-13] MEDS: HYDROcodone-ACET 5/325MG TAB PO PRN ×3 (05:38→23:21)
[2018-03-13] MEDS: GABAPENTIN 300 MG CAP PO SCH ×3 (05:38→23:20)
[2018-03-13] MEDS: Ensure Enlive Strawberry 8oz Bottle PO SCH ×3 (08:00→17:54)
[2018-03-13 09:00] VITALS: BP 101/60
[2018-03-13] MEDS: METOPROLOL SUCCINATE XL 50 MG TAB PO SCH (10:00)
[2018-03-13] MEDS: ERTAPENEM SOD INJ 1 GM in SODIUM CHL 0.9% 50 ML IV SCH (10:36)
[2018-03-13] MEDS: MULTIPLE VITAMIN TAB PO SCH (10:37)
[2018-03-13] MEDS: PANTOPRAZOLE 40 MG TAB PO SCH ×2 (10:37→23:20)
[2018-03-13] MEDS: CYANOCOBALAMIN 500 MCG TAB PO SCH (10:38)
[2018-03-13 13:00] VITALS: BP 124/67
[2018-03-13] MEDS: SODIUM FERR GLUC 62.5MG/5ML 125 MG in SODIUM CHL 0.9% 100 ML IV SCH (13:08)
[2018-03-13] MEDS: SODIUM CHLORIDE 0.9% 1,000 ML IV SCH (15:18)
[2018-03-13 17:00] VITALS: BP 97/61
[2018-03-13 22:00] VITALS: BP 110/68
[2018-03-13] MEDS: TEMAZEPAM 15 MG CAP PO PRN (23:20)
[2018-03-14 05:00] VITALS: BP 99/59
[2018-03-14 05:16] LABS: Basophils # (auto) 0.1 uL; Basophils % (auto) 0.7 % (0.0-2.0); Eosinophils # (auto) 0.2 uL; Eosinophils % (auto) 3.2 % (0.0-7.0); Hematocrit 25.2 % (36.0-46.0); Hemoglobin 8.5 g/dL (12.2-16.2); Lymphocytes # (auto) 1.8 uL; Mean Corpuscular Hemoglobin 33.1 pg (28.0-32.0); Mean Corpuscular Hgb Conc. 33.8 g/dL (32.0-36.0); Mean Corpuscular Volume 97.9 fL (80.0-100.0); Monocytes # (auto) 1.2 uL; Monocytes % (auto) 17.6 % (0.0-12.0); Neutrophils # (auto) 3.7 uL; Neutrophils % (auto) 52.5 % (37.0-80.0); Nucleated Red Blood Cells % 0.1 %; Platelet Count (auto) 201 10^3/uL (140-450); Red Blood Cells 2.58 10^6/uL (4.0-5.20); Red Cell Distribution Width 15.9 % (11.8-14.3)
[2018-03-14] MEDS: GABAPENTIN 300 MG CAP PO SCH ×3 (05:38→23:16)
[2018-03-14 08:39] VITALS: BP 110/76
[2018-03-14] MEDS: MULTIPLE VITAMIN TAB PO SCH (09:51)
[2018-03-14] MEDS: HYDROcodone-ACET 5/325MG TAB PO PRN ×2 (09:51→23:16)
[2018-03-14] MEDS: PANTOPRAZOLE 40 MG TAB PO SCH ×2 (09:51→23:16)
[2018-03-14] MEDS: CYANOCOBALAMIN 500 MCG TAB PO SCH (09:51)
[2018-03-14] MEDS: METOPROLOL SUCCINATE XL 50 MG TAB PO SCH (09:52)
[2018-03-14] MEDS: ERTAPENEM SOD INJ 1 GM in SODIUM CHL 0.9% 50 ML IV SCH (10:00)
[2018-03-14] MEDS: SODIUM CHLORIDE 0.9% 1,000 ML IV SCH ×2 (11:19→23:48)
[2018-03-14] MEDS: Ensure Enlive Strawberry 8oz Bottle PO SCH ×3 (11:19→18:10)
[2018-03-14] MEDS: SODIUM FERR GLUC 62.5MG/5ML 125 MG in SODIUM CHL 0.9% 100 ML IV SCH (12:00)
[2018-03-14 12:05] VITALS: BP 104/65
[2018-03-14 16:50] VITALS: BP 102/60
[2018-03-14 22:08] VITALS: BP 94/58
[2018-03-14] MEDS: TEMAZEPAM 15 MG CAP PO PRN (23:16)
[2018-03-15 05:25] VITALS: BP 94/59
[2018-03-15] MEDS: GABAPENTIN 300 MG CAP PO SCH ×2 (06:11→14:52)
[2018-03-15] MEDS: Ensure Enlive Strawberry 8oz Bottle PO SCH ×3 (08:00→18:00)
[2018-03-15 09:00] VITALS: BP 100/56
[2018-03-15] MEDS: METOPROLOL SUCCINATE XL 50 MG TAB PO SCH (10:00)
[2018-03-15] MEDS: PANTOPRAZOLE 40 MG TAB PO SCH (10:31)
[2018-03-15] MEDS: MULTIPLE VITAMIN TAB PO SCH (10:31)
[2018-03-15] MEDS: CYANOCOBALAMIN 500 MCG TAB PO SCH (10:32)
[2018-03-15] MEDS: ERTAPENEM SOD INJ 1 GM in SODIUM CHL 0.9% 50 ML IV SCH (11:44)
[2018-03-15] MEDS: SODIUM FERR GLUC 62.5MG/5ML 125 MG in SODIUM CHL 0.9% 100 ML IV SCH (12:00)
[2018-03-15 13:00] VITALS: BP 107/68
[2018-03-15] MEDS ORDERED: PANT40T PO (13:43)
[2018-03-15] MEDS ORDERED: FER325T PO (13:43)
[2018-03-15 17:00] VITALS: BP 120/67
[2018-03-15] MEDS: SODIUM CHLORIDE 0.9% 1,000 ML IV SCH (17:18)
[2018-03-15 18:23] VITALS: BP 120/67
== END 2018-03-15 21:45 | disposition home health service (06) | DRG 720 ==
LOC: EDBD 15:43 → ER 15:43 → TELE 15:44 → TELE-WESTW 21:37
PROVIDERS: ADMIT Internal Medicine; ATTEND Internal Medicine
PROC: 0DB68ZX Excision of Stomach, Via Natural or Artificial Opening Endoscopic, Diagnostic (ICD-10-PCS; principal; 2018-03-10 09:10)
DX: A41.9 Sepsis, unspecified organism (principal); G93.40 Encephalopathy, unspecified; E11.22 Type 2 diabetes mellitus with diabetic chronic kidney disease; E11.42 Type 2 diabetes mellitus with diabetic polyneuropathy; E44.0 Moderate protein-calorie malnutrition; K25.4 Chronic or unspecified gastric ulcer with hemorrhage; D62 Acute posthemorrhagic anemia; N39.0 Urinary tract infection, site not specified; C56.9 Malignant neoplasm of unspecified ovary; B96.20 Unspecified Escherichia coli [E. coli] as the cause of diseases classified elsewhere; E83.51 Hypocalcemia; I67.81 Acute cerebrovascular insufficiency; I12.9 Hypertensive chronic kidney disease with stage 1 through stage 4 chronic kidney disease, or unspecified chronic kidney disease; S92.312A Displaced fracture of first metatarsal bone, left foot, initial encounter for closed fracture; S92.322A Displaced fracture of second metatarsal bone, left foot, initial encounter for closed fracture; S92.345A Nondisplaced fracture of fourth metatarsal bone, left foot, initial encounter for closed fracture; N18.2 Chronic kidney disease, stage 2 (mild); E03.9 Hypothyroidism, unspecified; G89.29 Other chronic pain; Z16.12 Extended spectrum beta lactamase (ESBL) resistance; M25.572 Pain in left ankle and joints of left foot; W18.39XA Other fall on same level, initial encounter; Z82.3 Family history of stroke; Z82.49 Family history of ischemic heart disease and other diseases of the circulatory system; Z83.3 Family history of diabetes mellitus; Z68.27 Body mass index [BMI] 27.0-27.9, adult; Z85.43 Personal history of malignant neoplasm of ovary; Z90.49 Acquired absence of other specified parts of digestive tract; Z90.710 Acquired absence of both cervix and uterus; Z92.21 Personal history of antineoplastic chemotherapy; Z91.030 Bee allergy status; Z91.041 Radiographic dye allergy status; Z91.013 Allergy to seafood; Y93.89 Activity, other specified; Y92.89 Other specified places as the place of occurrence of the external cause; Y99.8 Other external cause status
CPT/HCPCS: 36415; 43239; 70450; 70545; 70547; 70551; 71045; 73600; 73630; 73700; 74176; 80048; 80053; 80061; 81001; 82270; 82607; 82728; 82746; 83036; 83540; 83550; 83735; 84132; 84443; 84484; 85014; 85018; 85025; 85610; 85730; 86304; 86850; 86900; 86901; 87086; 87088; 87186; 93005; 93306; 93886; 95819; 96361; 96374; 97110; 97116; 97163; 97530; A6257; C9113; J0696; J1335; J2250

== ENCOUNTER → 2018-04-25 | Outpatient (CLI) | payer MEDICAID ==
[~2018-04-25] VITALS: Ht 160 cm; Wt 68.0 kg
[~2018-04-25] MED LIST: ACET-1603 PO; ADENOSINE 57 MG in GIVE UN-DILUTED 0 ML IV ONE; ALEN1TAB32 PO; B-CO1TAB32 PO; FER325T PO; GABA300C10 PO; MULTTAB61 PO; PANT40T PO
[2018-04-25 10:23] VITALS: BP 122/75
== END | disposition home or self-care (01) ==
LOC: XY 08:17
PROVIDERS: ATTEND Internal Medicine
DX: Z01.810 Encounter for preprocedural cardiovascular examination (principal)
CPT/HCPCS: 78452; 93017; A9500; J0153

== ENCOUNTER 2018-05-03 12:37 | Day surgery (SDC) | payer MEDICAID ==
[2018-04-29 12:28] LABS: Basophils # (auto) 0 uL; Basophils % (auto) 0.9 % (0.0-2.0); Eosinophils # (auto) 0.2 uL; Eosinophils % (auto) 3.1 % (0.0-7.0); Hematocrit 42.4 % (36.0-46.0); Hemoglobin 14.2 g/dL (12.2-16.2); Lymphocytes # (auto) 1.4 uL; Lymphocytes % (auto) 28.1 % (10.0-50.0); Mean Corpuscular Hemoglobin 31.9 pg (28.0-32.0); Mean Corpuscular Hgb Conc. 33.5 g/dL (32.0-36.0); Mean Corpuscular Volume 95.1 fL (80.0-100.0); Monocytes # (auto) 0.7 uL; Monocytes % (auto) 13.4 % (0.0-12.0); Neutrophils # (auto) 2.8 uL; Neutrophils % (auto) 54.5 % (37.0-80.0); Nucleated Red Blood Cells % 0.1 %; Platelet Count (auto) 208 10^3/uL (140-450); Red Blood Cells 4.46 10^6/uL (4.0-5.20); Red Cell Distribution Width 15.4 % (11.8-14.3); White Blood Cell 5.1 10^3/uL (4.4-10.8)
[2018-04-29 12:33] LABS: Urine Bacteria FEW /hpf (None Seen); Urine Blood Negative /uL (Negative); Urine Mucus FEW (None Seen); Urine Specific Gravity 1.024 (1.001-1.035); Urine WBC 4 /hpf (0 - 5)
[2018-04-29 12:45] LABS: INR 0.96 (0.9-1.15); Partial Thromboplastin Time 24.9 sec (23.78-33.04); Prothrombin Time 10.3 sec (9.27-12.13)
[2018-04-29 13:08] LABS: Potassium 4.6 mmol/L (3.5-5.1)
[2018-04-29 13:18] LABS: Albumin 3.5 g/dL (3.4-5.0); BUN/Creatinine Ratio 21.4; Bilirubin, Total 0.2 mg/dL (0.2-1.0); Calcium 9.4 mg/dL (8.5-10.1)
[~2018-05-03] VITALS: Ht 160 cm; Wt 68.0 kg
[~2018-05-03 12:37] MED LIST changes: -ACET-1603 PO; -ADENOSINE 57 MG in GIVE UN-DILUTED 0 ML IV ONE
[2018-05-03] MEDS ORDERED: HYDROmorphone HCL 2 MG/ML VL IV PRN ×3 (13:15→15:30)
[2018-05-03] MEDS ORDERED: METOCLOPRAMIDE HCL 5MG/ml INJ 2ml VIAL IV ONE (13:15)
[2018-05-03] MEDS ORDERED: KETOROLAC TROMETH 30 MG/ML 1ML VIAL IV ONE (13:15)
[2018-05-03] MEDS ORDERED: ceFAZolin 1GM/50ML 100 ML IV ONE (13:21)
[2018-05-03] MEDS ORDERED: BUPIVACAINE HCL 50 ML ONE (13:30)
[2018-05-03] MEDS ORDERED: LIDOCAINE 1% HCL (LOCAL ANESTH.) INJ 20ML MDV ONE (13:30)
[2018-05-03] MEDS ORDERED: MIDAZOLAM HCL 1MG/1ML-2 ML VIAL ONE (13:51)
[2018-05-03] MEDS ORDERED: MEPERIDINE HCL (50 MG/ML) 1 ML VIAL ONE ×2 (13:51→15:48)
[2018-05-03] MEDS ORDERED: PROPOFOL 10 MG/ML 20 ML IV ONE (13:52)
[2018-05-03] MEDS ORDERED: ONDANSETRON HCL 4 MG/2 ML VIAL ONE (13:52)
[2018-05-03] MEDS ORDERED: SODIUM CHLORIDE LOCK 10 ML ONE (13:52)
[2018-05-03] MEDS ORDERED: fentaNYL CITRATE 100 MCG/2 ML VL ONE (13:53)
[2018-05-03] MEDS ORDERED: NALOXONE HCL 0.4 MG/ML VIAL IV PRN (15:30)
[2018-05-03] MEDS ORDERED: ONDANSETRON HCL 4 MG/2 ML VIAL IV ONE (15:30)
[2018-05-03 17:27] VITALS: BP 131/76
== END 2018-05-03 17:45 | disposition home or self-care (01) ==
LOC: SUR 12:37
PROVIDERS: ATTEND Podiatrist
DX: S92.322G Displaced fracture of second metatarsal bone, left foot, subsequent encounter for fracture with delayed healing (principal); S92.332 Displaced fracture of third metatarsal bone, left foot; S92.342G Displaced fracture of fourth metatarsal bone, left foot, subsequent encounter for fracture with delayed healing; X58.XXXD Exposure to other specified factors, subsequent encounter; E66.9 Obesity, unspecified; D64.9 Anemia, unspecified; G62.9 Polyneuropathy, unspecified; Z83.3 Family history of diabetes mellitus; Z82.49 Family history of ischemic heart disease and other diseases of the circulatory system; Z82.3 Family history of stroke; Z88.1 Allergy status to other antibiotic agents; Z91.041 Radiographic dye allergy status; Z91.013 Allergy to seafood; Z85.43 Personal history of malignant neoplasm of ovary; Z90.721 Acquired absence of ovaries, unilateral; Z85.71 Personal history of Hodgkin lymphoma; Z90.49 Acquired absence of other specified parts of digestive tract; Z98.890 Other specified postprocedural states; Z85.72 Personal history of non-Hodgkin lymphomas; Z85.028 Personal history of other malignant neoplasm of stomach; Z79.899 Other long term (current) drug therapy
CPT/HCPCS: 28615; J2175; J3010; 36415; 73620; 80053; 81001; 85025; 85610; 85730; J0690; J2001; J2250; J2405; J2704; J3490

== ENCOUNTER → 2020-04-17 | Day surgery (SDC) | payer MEDICARE ==
[~2020-04-17] VITALS: Ht 160 cm; Wt 73.0 kg
[~2020-04-17] MED LIST changes: +ACYC1CAP23 PO; -B-CO1TAB32 PO; +BUPIVACAINE HCL 50 ML ONE; +CHLORHEXIDINE 4% TOPICAL soln 118ml TOP ONE; +CYAN1DRO SL; +ETOMIDATE (2MG/ML) 20ML VIAL IV ONE; +FAMO20TA10 PO; -FER325T PO; +GLYCOPYRROLATE 0.2 MG/ML 1ML VIAL ONE; +HYDR-4833 PO; +HYDROmorphone HCL 2 MG/ML VL IV ONE; +HYDROmorphone HCL 2 MG/ML VL IV PRN; +KETOROLAC TROMETH 30 MG/ML 1ML VIAL ONE; +LIDOCAINE 1% (LOCAL ANESTH.) PF 5ml SDV ONE; +LIDOCAINE 1% HCL (LOCAL ANESTH.) INJ 20ML MDV ONE; +METOCLOPRAMIDE HCL 5MG/ml INJ 2ml VIAL ONE; +MIDAZOLAM HCL 1MG/1ML-2 ML VIAL ONE; +MULT-1018 PO; +MULT1TAB70 PO; -MULTTAB61 PO; +NALOXONE HCL 0.4 MG/ML VIAL IV PRN; +NEOSTIGMINE 1 MG/ML INJ (10mg/10ML VIAL) ONE; +ONDANSETRON HCL 4 MG/2 ML VIAL IV ONE; +ONDANSETRON HCL 4 MG/2 ML VIAL IV PRN; -PANT40T PO; +ROCURONIUM 10MG/ML 10ML VIAL IV ONE; +SUCCINYLCHOLINE CHLORIDE 20 MG/ML 10ML VIAL IV ONE; +ceFAZolin 1GM/50ML 50 ML IV ONE; +fentaNYL CITRATE 100 MCG/2 ML VL ONE
[2020-04-17 12:15] VITALS: BP 126/74
== END | disposition home or self-care (01) ==
LOC: SUR 07:51
PROVIDERS: ATTEND Podiatrist
DX: Z47.2 Encounter for removal of internal fixation device (principal); M96.0 Pseudarthrosis after fusion or arthrodesis; K21.9 Gastro-esophageal reflux disease without esophagitis; Z85.43 Personal history of malignant neoplasm of ovary; Z91.030 Bee allergy status; Z91.041 Radiographic dye allergy status; Z91.013 Allergy to seafood; Z20.828 Contact with and (suspected) exposure to other viral communicable diseases; Z90.721 Acquired absence of ovaries, unilateral; Z98.890 Other specified postprocedural states; Z79.899 Other long term (current) drug therapy
CPT/HCPCS: 20680; 28740; 73620; 76001; C1713; C1769; J0330; J0690; J1170; J1885; J2001; J2250; J2405; J2765; J3010; J3490; U0003; V2790